=== PATIENT | male | born 1955 | race Caucasian/White ===

== ENCOUNTER → 2020-09-04 | Outpatient (CLI) | payer MEDICARE, BC ==
[2014-03-31 10:15] VITALS: BP 114/67
[~2020-09-04] MED LIST: PRIM50TA PO; PROP60TA PO; TAMS0.4C2 PO
--- NOTE | 2020-09-04 11:11 | KCIC ---
Examination: MRI of the right knee without contrast HISTORY: History of right knee pain COMPARISON: None available Technique: Multiplanar, multisequence MR imaging of the right knee without contrast. Findings: The anterior cruciate ligament is not identified likely tear or ACL deficient knee. The posterior cr uciate ligament appears intact. There is blunting of the body and posterior horn of the medial menisc us likely tear or prior surgery. Mild blunting of the body of the lateral meniscus likely tear. The medial collateral ligament appears intact. Lateral collateral ligamentous complex appearing the f ibular collateral ligament, biceps femoris tendon, popliteus tendon appears intact The extensor mechanism appears intact. Mild fraying of cartilage identified in the medial, lateral, p atellofemoral compartments. The medial, lateral retinaculum appears intact. Small knee joint effusion. Moderate joint space loss in the medial, lateral, patellofemoral compartme nts likely degenerative changes Small knee joint effusion IMPRESSION: 1. The anterior cruciate ligament is not identified likely tear or ACL deficient knee. 2. Blunting of the body and posterior horn of the medial meniscus likely tear or prior surgery. 3. Mild blunting of the body of the lateral meniscus likely tear. 4. Moderate tricompartmental degenerative changes. 5. Small knee joint effusion. Electronically signed by: Jerson Vasquez MD (09/04/2020 11:09 AM) [id number]
== END ==
LOC: KCIC MRI 09:35
PROVIDERS: ATTEND Family Medicine
DX: M17.11 Unilateral primary osteoarthritis, right knee (principal); M25.461 Effusion, right knee
CPT/HCPCS: 73721